=== PATIENT | female | born 2000 | race Caucasian/White ===

== ENCOUNTER 2020-03-20 23:23 | Emergency (ER) | payer SELFPAY ==
[~2020-03-20] VITALS: Ht 160 cm; Wt 76.4 kg
[2020-03-20 23:29] VITALS: Ht 160 cm; Wt 76.4 kg
[2020-03-21] MEDS ORDERED: OCUFLOX 0.3 % OP5 ML RIGHT EYE (01:20)
[2020-03-21] MEDS ORDERED: TYLENOL W/CODEI1 TAB PO (01:20)
[2020-03-21 02:22] VITALS: BP 131/89
== END 2020-03-21 02:22 | disposition home or self-care (01) ==
LOC: D.ER 23:23
DX: H57.12 Ocular pain, left eye (principal)